=== PATIENT | male | born 1995 | race Caucasian/White ===

== ENCOUNTER 2018-06-20 01:22 | Emergency (ER) | payer MEDICAID ==
[~2018-06-20] VITALS: Ht 172.7 cm; Wt 85.0 kg
[2018-06-20] MEDS ORDERED: FLUO40CA9 PO (01:32)
[2018-06-20 03:10] VITALS: BP 116/74
== END 2018-06-20 03:13 | disposition home or self-care (01) ==
LOC: ED 02:39
DX: S82.61XA Displaced fracture of lateral malleolus of right fibula, initial encounter for closed fracture (principal); X50.1XXA Overexertion from prolonged static or awkward postures, initial encounter; Y93.89 Activity, other specified; Y92.410 Unspecified street and highway as the place of occurrence of the external cause; Y99.8 Other external cause status
CPT/HCPCS: 29515; 99283